=== PATIENT | male | born 1940 | race Hispanic/Latino ===

== ENCOUNTER 2017-04-28 11:23 | Inpatient (IN) | payer MEDICARE ==
[2017-04-28 11:35] VITALS: BMI 25.8
[2017-04-28] MEDS ORDERED: Lidocaine 2 Grams in D5W 2,000 MG/500 ML BAG IV PRN (11:35)
--- NOTE | 2017-04-28 11:36 | ED PDOC ---
Arrival/HPI - General Time Seen by Provider: 04/28/17 11:32 Historian: EMS - Critical Care Critical Care Minutes: 30 minutes - History of Present Illness Narrative History of Present Illness (Text): 04/28/17 11:32 A 76 year old male, whose past medical history includes PA 10 years ago with 3 cardiac stents, brought into the emergency department by EMS for chest pain radiating down his left arm. As per EMS report, patient was cardioverted 7 times in the field on route to emergency room. Patient received aspirin, 300 amiodarone, 2g magnesium and 100 lidocaine. HPI and ROS limited due to patients state. PMD: Dr. Lauren Past Medical History - Provider Review Nursing Documentation Reviewed: Yes Family/Social History - Physician Review Nursing Documentation Reviewed: Yes Family/Social History: No Known Family HX Allergies/Home Meds Allergies/Adverse Reactions: Allergies No Known Allergies Allergy (Verified 04/28/17 11:34) Review of Systems - Review of Systems Systems not reviewed;Unavailable: Acuity of Condition Physical Exam Vital Signs Reviewed: Yes Vital Signs Temp Pulse Resp BP Pulse Ox 04/28/17 20:45 65 64 H 141/84 98 04/28/17 20:40 68 29 H 99 04/28/17 20:30 64 17 134/78 97 04/28/17 20:20 64 14 100 04/28/17 20:15 63 19 135/77 97 04/28/17 20:10 64 31 H 99 04/28/17 20:00 65 18 149/81 98 04/28/17 18:30 60 137/82 99 04/28/17 18:20 62 64 H 98 04/28/17 18:15 59 L 136/81 98 04/28/17 18:10 61 59 H 99 04/28/17 18:00 61 145/83 99 04/28/17 17:50 62 69 H 100 04/28/17 17:45 62 153/89 H 99 04/28/17 17:40 63 69 H 100 04/28/17 17:31 64 44 H 149/84 100 04/28/17 17:30 65 27 H 98 04/28/17 17:20 67 18 125/75 99 04/28/17 17:15 61 16 125/75 100 04/28/17 17:10 61 16 100 04/28/17 17:07 98.4 F 75 H 142/79 04/28/17 17:00 62 25 H 133/75 100 04/28/17 16:50 63 23 100 04/28/17 16:47 74 H 04/28/17 16:45 62 16 130/73 100 04/28/17 16:40 62 17 100 04/28/17 16:37 72 H 04/28/17 16:30 63 16 123/78 100 04/28/17 16:29 63 16 129/75 100 04/28/17 16:22 70 68 H 129/75 04/28/17 16:20 63 16 100 04/28/17 16:10 61 15 100 04/28/17 16:07 66 17 142/79 04/28/17 16:05 65 14 142/79 100 04/28/17 16:00 62 18 100 04/28/17 15:52 66 132/63 04/28/17 15:50 63 23 100 04/28/17 15:43 65 24 98 04/28/17 15:37 17 142/74 04/28/17 15:22 59 L 04/28/17 12:30 80 18 111/70 100 04/28/17 11:59 61 145/82 Blood Pressure: Normal Pulse: Regular Appearance: Positive for: Well-Appearing, Non-Toxic, Comfortable Pain Distress: None Mental Status: Positive for: Alert and Oriented X 3 - Systems Exam Head: Present: Atraumatic, Normocephalic Pupils: Present: PERRL Extroacular Muscles: Present: EOMI Conjunctiva: Present: Normal Mouth: Present: Moist Mucous Membranes Neck: Present: Normal Range of Motion Respiratory/Chest: Present: Clear to Auscultation, Good Air Exchange. No: Respiratory Distress, Accessory Muscle Use Cardiovascular: Present: Regular Rate and Rhythm, Normal S1, S2. No: Murmurs Abdomen: Present: Normal Bowel Sounds. No: Tenderness, Distention, Peritoneal Signs Back: Present: Normal Inspection Upper Extremity: Present: Normal Inspection. No: Cyanosis, Edema Lower Extremity: Present: Normal Inspection. No: Edema Neurological: Present: GCS=15, CN II-XII Intact, Speech Normal Skin: Present: Warm, Dry, Normal Color. No: Rashes Psychiatric: Present: Alert, Oriented x 3, Normal Insight, Normal Concentration Medical Decision Making ED Course and Treatment: 04/28/17 11:32 Impression: A 76 year old male brought in for chest pain radiating down left arm Plan: -- Chest xray -- EKG -- Labs -- Lidocaine, Nitroglycerin and IV fluids -- Reassess and disposition Progress Notes: EKG shows NSR at 62 BPM with RBBB, normal rate, normal axis, normal interval. Interpreted by me. Weaving Supervisor paged. Awaiting call back. Report Date : 04/28/2017 12:22:50 Procedure: Chest xray Dictator : Carmen Erazo MD IMPRESSION: No active pulmonary disease. 04/28/17 12:38 Weaving Supervisor is in the middle of a procedure. States he will contact the emergency room after he is done. 04/28/17 2:[address]visor [address] Velazquez, states he will evaluate patient at bedside. 04/28/17 13:02 Dr. Velazquez at bedside, states he will take patient to the syrup machine laborer. Requests to administer Plavix. Plan is to admit to the ICU. Case discussed with Dr. Ceballos, who accepts admission to his service. - Critical Care Critical Care Minutes: 30 minutes - Lab Interpretations Lab Results: 04/28/17 11:25 04/28/17 11:25 Lab Results 04/28/17 12:13: pO2 135 H, VBG pH 7.28 L, VBG pCO2 45.0, VBG HCO3 21.1, VBG Total CO2 22.5, VBG O2 Sat (Calc) 99.5 H, VBG Base Excess -5.6 L, VBG Potassium 3.6, Glucose 177 H, Lactate 2.9 H, FiO2 21.0, Sodium 137.0, Chloride 106.0, Venous Blood Potassium 3.6 04/28/17 11:25: Sodium 141, Potassium 3.2 L, Chloride 102, Carbon Dioxide 21, Anion Gap 21 H, BUN 18, Creatinine 1.3, Est GFR ( Amer) > 60, Est GFR ( Non-Af Amer) 54, Random Glucose 178 H, Calcium 9.7, Phosphorus 3.7, Magnesium 3.9 H, Total Bilirubin 1.2, AST 30, ALT 32, Alkaline Phosphatase 77, Lactate Dehydrogenase 549, Total Creatine Kinase 199, Troponin I 0.04, Total Protein 7.1 , Albumin 4.2, Globulin 2.9, Albumin/Globulin Ratio 1.4 04/28/17 11:25: PT 11.9, INR 1.03 04/28/17 11:25: WBC 13.3 H, RBC 5.26, Hgb 16.1, Hct 47.1, MCV 89.5, MCH 30.6, MCHC 34.2, RDW 13.3, Plt Count 191, MPV 11.0, Gran % 76.3 H, Lymph % (Auto) 16.7 L, Coleman % (Auto) 6.8 H, Eos % (Auto) 0.0 L, Baso % (Auto) 0.2, Gran # 10.11 H, Lymph # (Auto) 2.2, Coleman # (Auto) 0.9 H, Eos # (Auto) 0.0, Baso # (Auto ) 0.03 - RAD Interpretation Radiology Orders: 04/28/17 11:35 CHEST PORTABLE [RAD] Stat - Medication Orders Current Medication Orders: Discontinued Medications Acetaminophen (Tylenol 325mg Tab) 650 mg PO STAT STA Stop: 04/28/17 20:26 Last Admin: 04/28/17 20:40 Dose: 650 mg MAR Pain/Vitals Document 04/28/17 20:40 SGG (Rec: 04/28/17 20:40 SG [facility]) Pain Reassessment Is This A Pain ReAssessment? No Sleep Is patient sleeping during reassessment? No Presence of Pain Presence of Pain Yes Aspirin (Ecotrin) 81 mg PO DAILY [facility] Last Admin: 05/02/17 09:45 Dose: 81 mg Atorvastatin Calcium (Lipitor) 40 mg PO DIN [facility] Last Admin: 05/01/17 17:43 Dose: 40 mg Clopidogrel Bisulfate (Plavix) 600 mg PO STAT STA Stop: 04/28/17 13:11 Last Admin: 04/28/17 13:14 Dose: 600 mg Clopidogrel Bisulfate (Plavix) 75 mg PO DAILY [facility] Last Admin: 05/02/17 09:45 Dose: 75 mg Diltiazem HCl (Cardizem) 10 mg IVP ONCE ONE Stop: 04/29/17 23:37 Last Admin: 04/30/17 00:09 Dose: 10 mg IVP Administration Document 04/30/17 00:09 MELLO (Rec: 04/30/17 00:09 MELLO [id number]) Charges for Administration # of IVP Administrations 1 MAR Pulse and Blood Pressure Document 04/30/17 00:09 BK (Rec: 04/30/17 00:09 BK [id number]) Pulse Pulse Rate (60-90) 131 Blood Pressure Blood Pressure (100/60-150/90) 113/69 Diltiazem HCl (Cardizem) 10 mg IVP ONCE ONE Stop: 04/30/17 03:31 Last Admin: 04/30/17 03:43 Dose: 10 mg IVP Administration Document 04/30/17 03:43 BK (Rec: 04/30/17 03:44 BK [place] [id number]) Charges for Administration # of IVP Administrations 1 MAR Pulse and Blood Pressure Document 04/30/17 03:43 BK (Rec: 04/30/17 03:44 BK [place] [id number]) Pulse Pulse Rate (60-90) 125 Blood Pressure Blood Pressure (100/60-150/90) 118/78 Diltiazem HCl (Cardizem) 30 mg PO TID [facility] Last Admin: 05/02/17 09:44 Dose: 30 mg MAR Pulse and Blood Pressure Document 05/02/17 09:44 CARINA (Rec: 05/02/17 09:44 CARINA [place] [id number]) Pulse Pulse Rate (60-90) 72 Blood Pressure Blood Pressure (100/60-150/90) 136/72 Diltiazem HCl (Cardizem) 30 mg PO TID [facility] Docusate Sodium (Colace) 100 mg PO BID [facility] Last Admin: 05/02/17 09:44 Dose: 100 mg Last Bowel Movement Document 05/02/17 09:44 CARINA (Rec: 05/02/17 09:45 CARINA [place] [id number]) Last Bowel Movement Last Bowel Movement 05/01/17 Heparin Sodium (Porcine) (Heparin) 3,000 units IVP STAT STA PRN Reason: Protocol Stop: 04/29/17 23:38 Last Admin: 04/30/17 00:10 Dose: 3,000 units IVP Administration Document 04/30/17 00:10 BK (Rec: 04/30/17 00:10 MELLO [id number]) Charges for Administration # of IVP Administrations 1 Lidocaine HCl/Dextrose (Lidocaine 2 Grams In D5w) 2,000 mg in 500 mls @ 30 mls/ hr IV .T37N29H PRN; Protocol; 2 MG/MIN PRN Reason: TITRATE PER MD ORDER Stop: 04/28/17 20:00 Last Admin: 04/28/17 11:41 Dose: 30 mls/hr eMAR Start Stop Document 04/28/17 11:41 [facility] (Rec: 04/28/17 11:41 [facility] [id number]) Intravenous Solution Start Date 04/28/17 Start Time 11:41 Nitroglycerin/Dextrose (Nitroglycerin 50 Mg/250 Ml D5w) 50 mg in 250 mls @ 1.5 mls/hr IV .Q24H PRN; Protocol; 5 MCG/MIN PRN Reason: chest pain Last Admin: 04/28/17 11:59 Dose: 1.5 mls/hr eMAR Start Stop Document 04/28/17 11:59 [facility] (Rec: 04/28/17 12:05 [facility] [id number]) Intravenous Solution Start Date 04/28/17 Start Time 11:59 MAR Pulse and Blood Pressure Document 04/28/17 11:59 [facility] (Rec: 04/28/17 12:05 [facility] [id number]) Pulse Pulse Rate (60-90) 61 Blood Pressure Blood Pressure (100/60-150/90) 145/82 Sodium Chloride (Sodium Chloride 0.9%) 500 mls @ 999 mls/hr IV .Q31M STA Stop: 04/28/17 12:12 Last Admin: 04/28/17 11:53 Dose: 999 mls/hr eMAR Start Stop Document 04/28/17 11:53 [facility]MC (Rec: 04/28/17 11:54 [facility] [id number]) Intravenous Solution Start Date 04/28/17 Start Time 11:53 End Date 04/28/17 End time 12:25 Total Infusion Time 32 Sodium Chloride (Sodium Chloride 0.9%) 1,000 mls @ 50 mls/hr IV .Q20H FABIANO Stop: 04/28/17 20:00 Last Admin: 04/28/17 16:00 Dose: 50 mls/hr eMAR Start Stop Document 04/28/17 16:00 GLI (Rec: 04/28/17 17:21 GLI ADMIN-PC) Intravenous Solution Start Date 04/28/17 Start Time 16:00 End Date 04/28/17 Eptifibatide (Integrilin) 75 mg in 100 mls @ 11.975 mls/hr IV .Q8H22M FABIANO; 2 MCG/KG/MIN PRN Reason: Protocol Stop: 04/29/17 09:00 Last Admin: 04/30/17 19:22 Dose: Sodium Phosphate 15 mmole/ (Sodium Chloride) 255 mls @ 42.5 mls/hr IVPB ONCE ONE Stop: 04/29/17 14:16 Last Admin: 04/29/17 16:39 Dose: 42.5 mls/hr eMAR Start Stop Document 04/29/17 16:39 EMILI (Rec: 04/29/17 16:40 EMILI [facility]) Intravenous Solution Start Date 04/29/17 Start Time 10:30 End Date 04/29/17 End time 16:00 Total Infusion Time 330 diltiaZEM IVPB 100mg in NS (Cardizem 100mg In Ns) 100 mls @ 10 mls/hr IV .Q10H PRN; Protocol; 10 MG/HR PRN Reason: TITRATE PER MD ORDER Last Admin: 04/30/17 07:56 Dose: 10 mg/hr, 10 mls/hr eMAR Start Stop Document 04/30/17 07:56 CD (Rec: 04/30/17 07:57 CD [id number]) Intravenous Solution Start Date 04/30/17 Start Time 07:57 MAR Pulse Rate Document 04/30/17 07:56 CD (Rec: 04/30/17 07:57 CD [id number]) Pulse Rate Pulse Rate (60-90) 79 Titration Intervention Document 04/30/17 07:56 CD (Rec: 04/30/17 07:57 CD [id number]) Titration Intake Cumulative Intake (Rx) 100 Waste Amount 0 Container Volume 100 Titration Dosing Titration Dose 10 IV Rate 10 Intake/Decrease Started/Running Cumulative Dose 100 Heparin Sodium/Sodium Chloride (Heparin 86482 Units/250ml 1/2 Normal Saline) 25 ,000 units in 250 mls @ 13.472 mls/hr IV .[id number] PRN; Protocol; 18 UNITS/KG/HR PRN Reason: ADJUST RATE PER PROTOCOL Last Admin: 04/30/17 00:11 Dose: 18 units/kg/hr, 13.472 mls/hr eMAR Start Stop Document 04/30/17 00:11 BK (Rec: 04/30/17 00:12 BK [id number]) Intravenous Solution Start Date 04/30/17 Start Time 00:12 Titration Intervention Document 04/30/17 00:11 BK (Rec: 04/30/17 00:12 BK [id number]) Titration Intake Waste Amount 0 Container Volume 250 Titration Dosing Titration Dose 18 IV Rate 13.472 Intake/Decrease Started Potassium Phosphate 15 mmole/ (Sodium Chloride) 255 mls @ 42.5 mls/hr IVPB ONCE ONE Stop: 05/01/17 00:14 Last Admin: 04/30/17 21:26 Dose: 42.5 mls/hr eMAR Start Stop Document 04/30/17 21:26 SGG (Rec: 04/30/17 21:27 SGG [id number]) Intravenous Solution Start Date 04/30/17 Start Time 21:27 Potassium Phosphate 15 mmole/ (Sodium Chloride) 255 mls @ 42.5 mls/hr IVPB ONCE ONE Stop: 05/01/17 19:29 Last Admin: 05/01/17 13:56 Dose: 42.5 mls/hr eMAR Start Stop Document 05/01/17 13:56 CD (Rec: 05/01/17 13:56 CD [id number]) Intravenous Solution Start Date 05/01/17 Start Time 13:56 Lisinopril (Zestril) 2.5 mg PO DAILY [facility] Last Admin: 05/02/17 09:45 Dose: 2.5 mg MAR Pulse and Blood Pressure Document 05/02/17 09:45 CARINA (Rec: 05/02/17 09:46 CARINA [id number]) Pulse Pulse Rate (60-90) 72 Blood Pressure Blood Pressure (100/60-150/90) 136/72 Metoprolol Tartrate (Lopressor) 25 mg PO BID [facility] Last Admin: 05/02/17 09:45 Dose: 25 mg MAR Pulse and Blood Pressure Document 05/02/17 09:45 CARINA (Rec: 05/02/17 09:45 CARINA [id number]) Pulse Pulse Rate (60-90) 72 Blood Pressure Blood Pressure (100/60-150/90) 136/72 Ondansetron HCl (Zofran Inj) 4 mg IV ONCE PRN PRN Reason: Nausea/Vomiting Pantoprazole Sodium (Protonix Ec Tab) 40 mg PO DAILY [facility] Last Admin: 05/02/17 09:45 Dose: 40 mg Pneumococcal Polyvalent Vaccine (Pneumovax 23 Vaccine) 0.5 ml IM .ONCE ONE Stop: 04/28/17 20:55 Potassium Chloride (Klor-Con 10) 30 meq PO STAT STA Stop: 04/28/17 12:23 Last Admin: 04/28/17 13:14 Dose: 30 meq Potassium Chloride (K-Dur 20 Meq Er Tab) 40 meq PO STAT STA Stop: 04/28/17 15:32 Last Admin: 04/28/17 17:19 Dose: 40 meq Zolpidem Tartrate (Ambien) 5 mg PO HS PRN PRN Reason: Insomnia - PA / TRADE MARK EXAMINER / Resident Statement MD/DO has reviewed & agrees with the documentation as recorded. - Scribe Statement The provider has reviewed the documentation as recorded by the Tory Larry Provider Scribe Attestation: All medical record entries made by the Piperibanand were at my direction and personally dictated by me. I have reviewed the chart and agree that the record accurately reflects my personal performance of the history, physical exam, medical decision making, and the department course for this patient. I have also personally directed, reviewed, and agree with the discharge instructions and disposition Disposition/Present on Arrival - Present on Arrival Any Indicators Present on Arrival: No History of DVT/PE: No History of Uncontrolled Diabetes: No Urinary Catheter: No History of Decub. Ulcer: No History Surgical Site Infection Following: None - Disposition Have Diagnosis and Disposition been Completed?: No Diagnosis: Acute coronary syndrome, Ventricular tachycardia Disposition: HOSPITALIZED Disposition Time: 13:02 Patient Plan: Admission, ICU Condition: FAIR
[2017-04-28] MEDS ORDERED: Lidocaine 2 Grams in D5W 2,000 MG/500 ML BAG IV ONE (11:37)
[2017-04-28] MEDS ORDERED: Sodium Chloride 0.9% 500 ML IV STA (11:42)
[2017-04-28] MEDS ORDERED: Nitroglycerin 50mg in D5W 50 MG/250 ML BOTTLE IV PRN (11:42)
[2017-04-28 11:48] LABS: BASO # 0.03 K/mm3 (0.0-2.0); BASO % 0.2 % (0.0-3.0); GRAN # 10.11 (1.4-6.5); GRAN % 76.3 % (50.0-68.0); HEMOGLOBIN 16.1 g/dL (14.0-18.0); LYMPH # 2.2 (1.2-3.4); LYMPH % 16.7 % (22.0-35.0); MEAN CELL VOLUME 89.5 fl (80.0-105.0); MEAN CORPUSCULAR HEMOGLOBIN 30.6 pg (25.0-35.0); MEAN CORPUSCULAR HGB CONC 34.2 g/dl (31.0-37.0); MONO # 0.9 (0.1-0.6); MONO % 6.8 % (1.0-6.0); RBC 5.26 10^6/uL (3.5-6.1); RED CELL DISTRIBUTION WIDTH 13.3 % (11.5-14.5); WHITE BLOOD COUNT 13.3 10^3/ul (4.5-11.0)
[2017-04-28 11:56] LABS: INR 1.03 (0.93-1.08); PROTHROMBIN TIME 11.9 SECONDS (9.4-12.5)
[2017-04-28 11:58] LABS: ALB/GLOB RATIO 1.4 (1.1-1.8); ALBUMIN 4.2 g/dL (3.0-4.8); ALT/SGPT 32 U/L (7-56); AST/SGOT 30 U/L (17-59); BLOOD UREA NITROGEN 18 mg/dL (7-21); CALCIUM 9.7 mg/dL (8.4-10.5); GFR AFRICAN-AMERICAN > 60; GFR NON-AFRICAN AMERICAN 54; MAGNESIUM 3.9 mg/dL (1.7-2.2)
[2017-04-28 12:08] LABS: TROPONIN I 0.04 ng/mL
[2017-04-28] MEDS ORDERED: Potassium Chloride 10 mEq ER Tab PO STA (12:22)
--- NOTE | 2017-04-28 12:24 | RAD ---
HISTORY: chest pain and vtach COMPARISON: No prior. FINDINGS: LUNGS: The lungs are well inflated and clear. PLEURA: No significant pleural effusion identified, no pneumothorax apparent. CARDIOVASCULAR: Normal. OSSEOUS STRUCTURES: No significant abnormalities. VISUALIZED UPPER ABDOMEN: Normal. OTHER FINDINGS: None. IMPRESSION: No active pulmonary disease.
[2017-04-28 12:31] LABS: VENOUS BLOOD GAS BASE EXCESS -5.6 mmol/L (0.0-2.0); VENOUS BLOOD GAS PO2 135 mm/Hg (30-55); VENOUS BLOOD PH 7.28 (7.32-7.43)
[2017-04-28] MEDS ORDERED: Lidocaine 2% Inj (20ml) ONE (13:19)
[2017-04-28] MEDS ORDERED: Phenylephrine 10 mg/ml Inj ONE (13:20)
[2017-04-28] MEDS ORDERED: Midazolam 2 MG/2 ML VIAL ONE (13:20)
[2017-04-28] MEDS ORDERED: Iodixanol 320 MG/ML 200 ML BOTTLE IV ONE (13:21)
[2017-04-28] MEDS ORDERED: HEPARIN SODIUM/NS 2,000 ML IV ONE (13:21)
[2017-04-28] MEDS ORDERED: Iohexol 350mgl/ml 50 ML ONE (13:21)
[2017-04-28] MEDS ORDERED: Iodixanol 320 MG/ML 100 ML BOTTLE IV ONE (13:21)
[2017-04-28] MEDS ORDERED: Amiodarone 150 mg/D5W 100 ml 0 MG/0 ML BAG ONE (14:07)
[2017-04-28] MEDS ORDERED: Eptifibatide 0.75 mg/ml 75 MG/100 ML BOTTLE IV ONE (14:29)
[2017-04-28] MEDS ORDERED: Eptifibatide 20 mg/10mL Inj IVP ONE ×2 (14:29→14:30)
[2017-04-28] MEDS: Eptifibatide 0.75 mg/ml 75 MG/100 ML BOTTLE IV SCH ×2 (14:46→21:39)
[2017-04-28] MEDS ORDERED: HEPARIN SODIUM/NS 1,000 ML IV ONE (14:54)
[2017-04-28] MEDS ORDERED: Sodium Chloride 0.9% 1,000 ML IV SCH (15:30)
[2017-04-28] MEDS ORDERED: Potassium Chloride 20 mEq ER Tab PO STA (15:31)
--- NOTE | 2017-04-28 15:43 | CARD ---
APPROVED REPORT Procedure(s) performed: Left Heart Catheterization PTCA with Stenting 0f Mid RCA with YUNI HISTORY 7 days), previous diagnostic cath, tobacco history() : The patient is a former smoker , previous PCI (The PCI date was 03/14/2006), hypertension , dyslipidemia , Came to ER with Chest Pain and VT/V .Fib shocked 7 times en route to ER on [place], Hx of PTCA with three stents 10 years ago, then lost F/u.. INDICATION The indication(s) include : unstable angina , non-STEMI , arrhythmia, dyspnea. CASE TECHNIQUE The patient was brought emergently to the Cardiac Catheterization Laboratory in a fasting state and was prepped and draped in a sterile manner. The was infiltrated with 2% Lidocaine subcutaneous anesthesia. A 6 Fr x 11 cm Cristina sheath was inserted into the right femoral artery without difficulty. Coronary angiography was performed using coronary diagnostic catheters. The left coronary system was accessed and visualized with a Diagnostic ,5 Fr JL 3.5 catheter. The right coronary system was accessed and visualized with a Diagnostic , 5 Fr JR 4 catheter. The left ventricle was accessed and visualized with a 5 Fr Pigtail 145 (Angled) catheter. Left ventricular/Aortic Valve gradient assessed on pullback. Closure device was deployed with a 6 Fr Angio-Seal without any complications. Vessel Analysis The patient's coronary anatomy is co-dominant. The left main coronary artery is a large size vessel with diffuse calcification noted throughout this vessel and without significant stenosis. There is a 20% stenosis in the distal segment. The left main trifurcates to the left anterior descending, circumflex, and ramus. The left anterior descending artery is a medium size vessel with diffuse calcification noted throughout this vessel and without significant stenosis. patent stents in Proximal and mid LAD The first diagonal branch is a medium size vessel with diffuse calcification noted throughout this vessel and without significant stenosis. The circumflex artery is a large size vessel with diffuse calcification noted throughout this vessel and without significant stenosis. The first obtuse marginal branch is a small size vessel with diffuse calcification noted throughout this vessel and without significant stenosis. The second obtuse marginal branch is a small size vessel with diffuse calcification noted throughout this vessel and without significant stenosis. The left posterior descending artery is a large size vessel with diffuse calcification noted throughout this vessel and without significant stenosis. The ramus intermedius artery is a medium size vessel with diffuse calcification noted throughout this vessel and without significant stenosis. The right coronary artery is a large size vessel with diffuse calcification noted throughout this vessel and with significant stenosis. Brant's crook take off There is a 100% stenosis in the mid segment. Left Ventricle The left ventricle is mildly enlarged in size with mildly decreased contractility. Ischemic cardiomyopathy. The left ventricular ejection fraction is estimated to be 45%. The left ventricular end diastolic pressure is 10-12 mmHg. There was no gradient across the aortic valve upon pullback. PCI Technique Lesion Anticoagulation was achieved with Heparin. Percutaneous coronary intervention was performed on the mid right coronary artery. The lesion stenosis prior to intervention was 100% with GERARD 0 flow. A 6 Fr JR 4 and 6 fr guide liner Guide Catheter was used to engage the ostium. A Everywun 182 Interventional Guidewire was used to cross the lesion. BALLOON DILATION A Balloon catheter 2.0 x 10 mm Sprinter RX was inserted and inflated up to 8.00atm for 33seconds. STENT DEPLOYMENT A drug-eluting stent 3.0 x 15 mm Resolute YUNI was inserted and inflated up to 14.00atm for 10seconds. Final angiography reveals 0 % stenosis with GERARD 3 flow. 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 EF-45%, EDP-10-12 mmof Hg. Recommendations Cardiac Rehabilitation ReferralDaily ASA with Plavix for at least one year Aggressive Medical TherapyCardiac Risk Reduction Program compliance with meds. Beta valery/ URIEL/ statin DC lidocaine in 6 hours. CC; Drs. Lauren/ Whit
--- NOTE | 2017-04-28 17:27 | CP.PCM.CON ---
<Abhishek Saleem - Last Filed: 04/28/17 18:47> History of Present Illness - History of Present Illness History of Present Illness: Abhishek ParsonStiven PGY1 ICU Consult Note for Dr. Ceballos Mr. Shine is a 76yo M who is a former smoker with a PMH of [place] (2006) s/p [address] Velazquez and CAD 1 (poor stress test results) 1 year later that required [address] Sherman who presented to ED with complaints of chest heaviness. The patient states that he was on his way home when he experienced chest heaviness, but due to his cardiac history, was worried and called EMT. Chest pain also radiated to his L arm, but was not pleuritic in nature and not associated w/ shortness of breath, n/v/d, dizziness , headaches, or diaphoresis. Per ED note, the patient was "cardioverted 7 times in the field on route to emergency room. Patient received aspirin, 300 amiodarone, 2g magnesium and 100 lidocaine." EKG in ED showed NSR at 62 BPM with RBBB, normal rate, normal axis, normal interval. CXR was unremarkable. Dr. Velazquez, Cardiology, was paged and recommended to administer Plavix. Patient was taken to labor operator and underwent Left heart catheterization w/ stenting of mid RCA w/ 1 YUNI due to 100% occlusion. When seen by ICU team, patient is resting comfortably and states that his chest discomfort has resolved. He denies shortness of breath, fevers, n/v/d, cough or any dizziness. 12-pt ROS was reviewed and is otherwise negative. PMH: as above PSH: none Meds: as Per MAR NKDA SHx: former smoker, , lives in senior home, denies ETOH or substance abuse PMD: Dr. Lauren Review of Systems - Review of Systems All systems: reviewed and no additional remarkable complaints except (as per HPI ) Past Patient History - Infectious Disease Hx of Infectious Diseases: None - Past Medical History & Family History Past Medical History?: Yes - Past Social History Smoking Status: Former Smoker Alcohol: None Drugs: Denies Home Situation {Lives}: Other ([facility] facility) - CARDIAC Hx Cardiac Disorders: Yes (s/p 3 stents due to CAD) Hx Heart Attack: Yes - PULMONARY Hx Respiratory Disorders: No - NEUROLOGICAL Hx Neurological Disorder: No - HEENT Hx HEENT Problems: No - RENAL Hx Chronic Kidney Disease: No - ENDOCRINE/METABOLIC Hx Endocrine Disorders: No - HEMATOLOGICAL/ONCOLOGICAL Hx Blood Disorders: No - INTEGUMENTARY Hx Dermatological Problems: No - MUSCULOSKELETAL/RHEUMATOLOGICAL Hx Musculoskeletal Disorders: No - GASTROINTESTINAL Hx Gastrointestinal Disorders: No - GENITOURINARY/GYNECOLOGICAL Hx Genitourinary Disorders: No - PSYCHIATRIC Hx Psychophysiologic Disorder: No Hx Substance Use: No - SURGICAL HISTORY Hx Surgeries: Yes Hx Cardiac Catheterization: Yes Hx Coronary Stent: Yes (x3) Meds Allergies/Adverse Reactions: Allergies Allergy/AdvReac Type Severity Reaction Status Date / Time No Known Allergies Allergy Verified 04/28/17 11:34 - Medications Medications: Current Medications Aspirin (Ecotrin) 81 mg PO DAILY [facility] Atorvastatin Calcium (Lipitor) 40 mg PO DIN [facility] Last Admin: 04/28/17 17:19 Dose: 40 mg Clopidogrel Bisulfate (Plavix) 75 mg PO DAILY [facility] Docusate Sodium (Colace) 100 mg PO BID [facility] Last Admin: 04/28/17 17:19 Dose: 100 mg Lidocaine HCl/Dextrose (Lidocaine 2 Grams In D5w) 2,000 mg in 500 mls @ 30 mls/ hr IV .[id number] PRN; Protocol; 2 MG/MIN PRN Reason: TITRATE PER MD ORDER Stop: 04/28/17 20:00 Last Admin: 04/28/17 11:41 Dose: 30 mls/hr Sodium Chloride (Sodium Chloride 0.9%) 1,000 mls @ 50 mls/hr IV .Q20H FABIANO Stop: 04/28/17 20:00 Last Admin: 04/28/17 16:00 Dose: 50 mls/hr Eptifibatide (Integrilin) 75 mg in 100 mls @ 11.975 mls/hr IV .Q8H22M FABIANO; 2 MCG/KG/MIN PRN Reason: Protocol Stop: 04/29/17 09:00 Last Admin: 04/28/17 14:46 Dose: 11.975 mls/hr Lisinopril (Zestril) 2.5 mg PO DAILY [facility] Metoprolol Tartrate (Lopressor) 25 mg PO BID [facility] Last Admin: 04/28/17 17:20 Dose: 25 mg Ondansetron HCl (Zofran Inj) 4 mg IV ONCE PRN PRN Reason: Nausea/Vomiting Zolpidem Tartrate (Ambien) 5 mg PO HS PRN PRN Reason: Insomnia Physical Exam - Constitutional Appears: Well, Non-toxic, No Acute Distress - Head Exam Head Exam: ATRAUMATIC, NORMAL INSPECTION - Eye Exam Eye Exam: EOMI, Normal appearance - ENT Exam ENT Exam: Mucous Membranes Moist - Neck Exam Neck exam: Positive for: Normal Inspection - Respiratory Exam Respiratory Exam: Clear to Auscultation Bilateral, NORMAL BREATHING PATTERN. absent: Rales, Rhonchi, Wheezes, Respiratory Distress - Cardiovascular Exam Cardiovascular Exam: RRR, +S1, +S2 - GI/Abdominal Exam GI & Abdominal Exam: Normal Bowel Sounds, Soft. absent: Distended, Tenderness - Exam Additional comments: no fonseca - Extremities Exam Extremities exam: Positive for: normal inspection. Negative for: pedal edema Additional comments: R femoral artery compression dressing applied dressing c/d/i no bleeding noted - Back Exam Back exam: NORMAL INSPECTION - Neurological Exam Neurological exam: Alert, Oriented x3 - Psychiatric Exam Psychiatric exam: Normal Affect, Normal Mood - Skin Skin Exam: Normal Color, Warm Results - Vital Signs Recent Vital Signs: Last Vital Signs Temp Pulse 75 04/28/17 17:20 Resp 74 H 04/28/17 16:47 BP 125/75 04/28/17 17:20 Pulse Ox 100 04/28/17 16:30 - Labs Result Diagrams: 04/28/17 11:25 04/28/17 11:25 Assessment & Plan - Assessment and Plan (Free Text) Assessment: 76yo M with a PMH of CAD s/p 3 stents and former tobacco use who presented with chest pain x1 day. Troponin was indeterminate and EKG showed RBBB but no ST elevations or T-wave changes. Patient was taken to labor operator and underwent PTCA w / stenting of mid RCA w/ YUNI for 100% occlusion. Patient is medically stable. Plan: 1. CAD s/p LHC and PTCA w/ YUNI - Cardiology following and recommend: daily ASA and Plavix for >1 year medical therapy cardiac risk reduction program strict medical compliance with meds cont BB, ACEi, and statin d/c lidocaine at 8pm tonight - patient to be on integrilin drip until tomorrow, afterward he can be d/c from ICU - cont Zofran PRN - cont colace - follow rest of cardio recs - follow up labs ordered by cardio - echo ordered - D for dinner tonight 2. Leukocytosis - likely reactive - cont to monitor for signs of infection 3. Hypokalemia - repleted in ED - trend labs Patient was seen, examined and discussed with attending, Dr. Tucker Saleem PGY1 Pager # [phone] <Diaz Ceballos - Last Filed: 04/29/17 12:38> Meds - Medications Medications: Current Medications Aspirin (Ecotrin) 81 mg PO DAILY [facility] Last Admin: 04/29/17 11:45 Dose: 81 mg Atorvastatin Calcium (Lipitor) 40 mg PO DIN [facility] Last Admin: 04/28/17 17:19 Dose: 40 mg Clopidogrel Bisulfate (Plavix) 75 mg PO DAILY [facility] Last Admin: 04/29/17 11:47 Dose: 75 mg Docusate Sodium (Colace) 100 mg PO BID [facility] Last Admin: 04/29/17 11:44 Dose: 100 mg Sodium Phosphate 15 mmole/ (Sodium Chloride) 255 mls @ 42.5 mls/hr IVPB ONCE ONE Stop: 04/29/17 14:16 Lisinopril (Zestril) 2.5 mg PO DAILY [facility] Last Admin: 04/29/17 11:48 Dose: 2.5 mg Metoprolol Tartrate (Lopressor) 25 mg PO BID [facility] Last Admin: 04/29/17 11:46 Dose: 25 mg Ondansetron HCl (Zofran Inj) 4 mg IV ONCE PRN PRN Reason: Nausea/Vomiting Zolpidem Tartrate (Ambien) 5 mg PO HS PRN PRN Reason: Insomnia Results - Vital Signs Recent Vital Signs: Last Vital Signs Temp 97.9 F 04/29/17 06:00 Pulse 68 04/29/17 11:48 Resp 24 04/29/17 07:00 BP 99/40 L 04/29/17 11:48 Pulse Ox 96 04/29/17 07:00 - Labs Result Diagrams: 04/29/17 05:30 04/29/17 05:30 Labs: Laboratory Results - last 24 hr 04/28/17 04/28/17 04/28/17 18:45 18:45 18:45 WBC 12.6 H RBC 5.06 Hgb 15.1 Hct 45.2 MCV 89.3 MCH 29.8 MCHC 33.4 RDW 13.4 Plt Count 184 MPV 10.3 Gran % 83.4 H Lymph % (Auto) 6.7 L [place] % (Auto) 9.8 H Eos % (Auto) 0.0 L Baso % (Auto) 0.1 Gran # 10.53 H Lymph # (Auto) 0.8 L [place] # (Auto) 1.2 H Eos # (Auto) 0.0 Baso # (Auto) 0.01 pO2 33 VBG pH 7.35 VBG pCO2 46.0 VBG HCO3 25.4 VBG Total CO2 26.8 VBG O2 Sat (Calc) 70.5 H VBG Base Excess -0.6 L VBG Potassium 4.7 Sodium 139 137.0 Chloride 103 105.0 Glucose 162 H Lactate 1.5 FiO2 21.0 Potassium 4.5 Carbon Dioxide 25 Anion Gap 15 BUN 15 Creatinine 1.0 Est GFR ( Amer) > 60 Est GFR (Non-Af Amer) > 60 Random Glucose 155 H Hemoglobin A1c Calcium 8.4 Phosphorus Magnesium 2.4 H Total Bilirubin AST ALT Alkaline Phosphatase Lactate Dehydrogenase 1986 H Total Creatine Kinase 4786 H CK-MB (CK-2) 338.0 H CK-MB (CK-2) % 7.1 H Troponin I 204.00 H* D Total Protein Albumin Globulin Albumin/Globulin Ratio Triglycerides Cholesterol LDL Cholesterol Direct HDL Cholesterol TSH 3rd Generation Venous Blood Potassium 4.7 04/29/17 04/29/17 04/29/17 05:30 05:30 05:30 WBC 14.1 H RBC 4.74 Hgb 14.0 Hct 42.5 MCV 89.7 MCH 29.5 MCHC 32.9 RDW 13.5 Plt Count 196 MPV 11.0 Gran % 79.1 H Lymph % (Auto) 11.2 L [place] % (Auto) 9.5 H Eos % (Auto) 0.1 L Baso % (Auto) 0.1 Gran # 11.15 H Lymph # (Auto) 1.6 Cam[place] # (Auto) 1.3 H Eos # (Auto) 0.0 Baso # (Auto) 0.01 pO2 VBG pH VBG pCO2 VBG HCO3 VBG Total CO2 VBG O2 Sat (Calc) VBG Base Excess VBG Potassium Sodium 140 Chloride 106 Glucose Lactate FiO2 Potassium 4.7 Carbon Dioxide 26 Anion Gap 13 BUN 30 H Creatinine 1.2 Est GFR ( Amer) > 60 Est GFR (Non-Af Amer) 59 Random Glucose 110 Hemoglobin A1c 5.0 Calcium 8.8 Phosphorus 1.4 L* Magnesium 2.4 H Total Bilirubin 1.1 AST 344 H D ALT 55 Alkaline Phosphatase 52 Lactate Dehydrogenase 2261 H Total Creatine Kinase 2907 H CK-MB (CK-2) 169.0 H CK-MB (CK-2) % 5.8 H Troponin I 102.00 H* D Total Protein 6.0 Albumin 3.3 Globulin 2.7 Albumin/Globulin Ratio 1.2 Triglycerides 76 Cholesterol 93 L LDL Cholesterol Direct 41 HDL Cholesterol 42 TSH 3rd Generation Venous Blood Potassium 04/29/17 05:30 WBC RBC Hgb Hct MCV MCH MCHC RDW Plt Count MPV Gran % Lymph % (Auto) Camden % (Auto) Eos % (Auto) Baso % (Auto) Gran # Lymph # (Auto) Cam[place] # (Auto) Eos # (Auto) Baso # (Auto) pO2 VBG pH VBG pCO2 VBG HCO3 VBG Total CO2 VBG O2 Sat (Calc) VBG Base Excess VBG Potassium Sodium Chloride Glucose Lactate FiO2 Potassium Carbon Dioxide Anion Gap BUN Creatinine Est GFR ( Amer) Est GFR (Non-Af Amer) Random Glucose Hemoglobin A1c Calcium Phosphorus Magnesium Total Bilirubin AST ALT Alkaline Phosphatase Lactate Dehydrogenase Total Creatine Kinase CK-MB (CK-2) CK-MB (CK-2) % Troponin I Total Protein Albumin Globulin Albumin/Globulin Ratio Triglycerides Cholesterol LDL Cholesterol Direct HDL Cholesterol TSH 3rd Generation 0.57 Venous Blood Potassium Attending/Attestation - Attestation I have personally seen and examined this patient.: Yes I have fully participated in the care of the patient.: Yes I have reviewed all pertinent clinical information: Yes Notes (Text): 04/29/17 12:33 76 yo male with Vtach due to ACS, s/p PCI with YUNI into RCA, with resolution of chest pain and episodes of Vtach. On integrillin, DAP, statins bb-ers. GI prophylaxis.
[2017-04-28 18:59] LABS: BASO # 0.01 K/mm3 (0.0-2.0); BASO % 0.1 % (0.0-3.0); GRAN # 10.53 (1.4-6.5); GRAN % 83.4 % (50.0-68.0); HEMOGLOBIN 15.1 g/dL (14.0-18.0); LYMPH # 0.8 (1.2-3.4); LYMPH % 6.7 % (22.0-35.0); MEAN CELL VOLUME 89.3 fl (80.0-105.0); MEAN CORPUSCULAR HEMOGLOBIN 29.8 pg (25.0-35.0); MEAN CORPUSCULAR HGB CONC 33.4 g/dl (31.0-37.0); MEAN PLATELET VOLUME 10.3 fl (7.0-11.0); MONO # 1.2 (0.1-0.6); MONO % 9.8 % (1.0-6.0); RBC 5.06 10^6/uL (3.5-6.1); RED CELL DISTRIBUTION WIDTH 13.4 % (11.5-14.5); WHITE BLOOD COUNT 12.6 10^3/ul (4.5-11.0)
[2017-04-28 19:01] LABS: VENOUS BLOOD GAS BASE EXCESS -0.6 mmol/L (0.0-2.0); VENOUS BLOOD GAS PO2 33 mm/Hg (30-55); VENOUS BLOOD PH 7.35 (7.32-7.43)
[2017-04-28 19:33] LABS: BLOOD UREA NITROGEN 15 mg/dL (7-21); CALCIUM 8.4 mg/dL (8.4-10.5); GFR AFRICAN-AMERICAN > 60; GFR NON-AFRICAN AMERICAN > 60; MAGNESIUM 2.4 mg/dL (1.7-2.2)
[2017-04-28 19:36] LABS: CK MB% 7.1 % (2.5-3.0)
[2017-04-28] MEDS ORDERED: Influenza Vaccine 60 mcg/0.5 mL SYR (4YR UP) IM ONE (20:54)
[2017-04-28] MEDS ORDERED: Pneumococcal 23-Valent Vaccine IM ONE (20:54)
[2017-04-29] MEDS: Eptifibatide 0.75 mg/ml 75 MG/100 ML BOTTLE IV SCH ×2 (00:27→05:54)
--- NOTE | 2017-04-29 01:09 | CON ---
DATE: REASON FOR CONSULTATION: VT, chest pain, multiple times shocked, came to the emergency room. Now patient is chest pain free. BRIEF CLINICAL HISTORY: This is a 76-year-old male with past medical history significant for myocardial infarction, CAD, status post MT 10 years ago, status post 3 stents [facility], who came to the emergency room after patient was going for ultrasound and came back home and felt sick, and developed chest pain; so family called the ambulance 911. Patient had v-fib arrest, cardioverted 7 times en route to [facility]. Now patient is on lidocaine. Feels a little chest pain, but not as bad as before. PAST MEDICAL HISTORY: Significant for coronary artery disease, status post 3 stents at [facility] by me. SOCIAL HISTORY: Denies any history of alcohol abuse. CURRENT MEDICATIONS: Patient is not sure what medications he is taking before. REVIEW OF SYSTEMS: As per HPI. PHYSICAL EXAMINATION VITAL SIGNS: Temperature afebrile, heart rate 80. Height of the patient is 5 feet 7 inches, weight of the patient 165 pounds, body mass index 25.8 kg/m2. Blood pressure 110/70. HEENT: PERRLA, extraocular muscles intact. NECK: Supple. No carotid bruits or thyromegaly. CHEST: Clear to auscultation. HEART: S1 and S2 regular. ABDOMEN: Soft. EXTREMITIES: Clubbing and cyanosis negative. LABORATORY DATA: Blood workup as follows. WBC is elevated 13.3, hemoglobin , hematocrit 47.1. Platelet count 191. Chemistry showed sodium 141, potassium 3.2, chloride 102, carbon dioxide 21, anion gap of 21. BUN 18, creatinine 1.3. EKG shows right bundle-branch block, ST-T wave changes. IMPRESSION: Possible acute ischemia, ventricular tachycardia, ventricular fibrillation, status post , history of coronary artery disease, history of stent 10 years ago, history of myocardial infarction 10 years ago, diabetes, hypertension, hyperlipidemia, noncompliance with the medications. RECOMMENDATIONS: We will load with 600 Plavix. Risks, benefits and alternatives were discussed with the patient and patient's son. Continue lidocaine. We will take him to the rd lab technician. Further recommendation after cardiac catheterization. We will follow with you. We will supplement potassium. Thank you Dr. Lauren for providing us the opportunity in taking care of the patient, Gage Shine. Ly Velazquez MD cc: Molly Lauren MD
[2017-04-29 06:54] LABS: BASO # 0.01 K/mm3 (0.0-2.0); BASO % 0.1 % (0.0-3.0); EOS % 0.1 % (1.5-5.0); GRAN # 11.15 (1.4-6.5); GRAN % 79.1 % (50.0-68.0); LYMPH # 1.6 (1.2-3.4); LYMPH % 11.2 % (22.0-35.0); MEAN CELL VOLUME 89.7 fl (80.0-105.0); MEAN CORPUSCULAR HEMOGLOBIN 29.5 pg (25.0-35.0); MEAN CORPUSCULAR HGB CONC 32.9 g/dl (31.0-37.0); MONO # 1.3 (0.1-0.6); MONO % 9.5 % (1.0-6.0); RBC 4.74 10^6/uL (3.5-6.1); RED CELL DISTRIBUTION WIDTH 13.5 % (11.5-14.5); WHITE BLOOD COUNT 14.1 10^3/ul (4.5-11.0)
[2017-04-29 07:16] LABS: LDL CHOLESTEROL 41 mg/dL (0-129)
[2017-04-29 07:39] LABS: ALB/GLOB RATIO 1.2 (1.1-1.8); ALBUMIN 3.3 g/dL (3.0-4.8); ALT/SGPT 55 U/L (7-56); AST/SGOT 344 U/L (17-59); BLOOD UREA NITROGEN 30 mg/dL (7-21); CALCIUM 8.8 mg/dL (8.4-10.5); GFR AFRICAN-AMERICAN > 60; GFR NON-AFRICAN AMERICAN 59; HDL CHOLESTEROL 42 mg/dL (29-60); MAGNESIUM 2.4 mg/dL (1.7-2.2)
[2017-04-29] MEDS ORDERED: Sodium Phosphate 15 MMOLE in Sodium Chloride 0.9% 250 ML IVPB ONE (08:17)
[2017-04-29 08:40] LABS: CK MB% 5.8 % (2.5-3.0)
--- NOTE | 2017-04-29 09:53 | CARD ---
APPROVED REPORT EKG Measurement Heart [id number] [place] 190P60 [id number] <Conclusion> Normal sinus rhythm Right bundle branch block LAHB Anteroseptal infarct, age undetermined STTW changes c/w ischemia
--- NOTE | 2017-04-29 10:06 | CARD ---
APPROVED REPORT EKG Measurement Heart [id number] IA 170P57 [id number] <Conclusion> Normal sinus rhythm Left axis deviation/LAHB Right bundle branch block Septal infarct, age undetermined, possible acute ST elevations V 1 - 4 now present
--- NOTE | 2017-04-29 10:21 | CARD ---
APPROVED REPORT EKG Measurement Heart [id number] [place] 148P22 [id number] <Conclusion> Normal sinus rhythm Left axis deviation/LAHB Right bundle branch block Anteroseptal infarct, evolving
--- NOTE | 2017-04-29 14:54 | PN ---
DATE: REASON FOR CONSULTATION: Followup VT, chest pain, multiple times shocked, came to the emergency room after having shocked 7 times status post PTCA of totally occluded RCA, wsf-WA-wayvico myocardial infarction possibly (acute NM inferior wall), though niy-FY-pvuxsdx elevation. SUBJECTIVE: Patient denies any chest pain, shortness of breath or any palpitation, feels a lot better. OBJECTIVE: GENERAL: Not in apparent distress. Right groin appears okay. Right distal pulse 1 to 2+. Rest of the examination as follows: VITAL SIGNS: Temperature afebrile, heart rate , blood pressure 134/79. HEENT: PERRLA. Extraocular muscles intact. NECK: Supple. No carotid bruits or thyromegaly. CHEST: Clear to auscultation. HEART: S1 and S2 regular. ABDOMEN: Soft. EXTREMITIES: Clubbing and cyanosis negative. LABORATORY DATA: WBC 14.9, hemoglobin 14, hematocrit 42.5, platelet count 196. Chemistry show sodium 140, potassium 4.7, chloride 106, carbon dioxide 26, anion gap of , creatinine 1.2, phosphorous 1.4, magnesium 2.4.. Total CPK 2907, troponin 102, maximum troponin 204 last night. Total CPK yesterday was 4786. IMPRESSION: Acute inferior wall myocardial infarction, qrs-WA-zpfuliw myocardial infarction, right bundle-branch block, history of coronary artery disease status post stent III, 8 to 10 years ago at [facility], admitted yesterday after having chest pain and en route to [place] having shocked 7 times ventricular tachycardia, ventricular fibrillation status post cardiac catheterization and angioplasty of totally occluded right coronary artery and a large clot was aspirated from right coronary artery and then stented, the right coronary artery stent was a drug-eluting stent, diabetes, hypertension, hyperlipidemia, history of coronary artery disease before, hypophosphatemia. RECOMMENDATIONS: Continue Integrilin till 9 a.m., supplement phosphate. Continue beta-valery, aspirin, Plavix, and low-dose lisinopril. We will get echo to assess LV function. Repeat the lab in the morning. Supplement phosphate. We will follow with you. Ambulate. Patient was on lidocaine, which was discontinued at 8 p.m. last night since then the patient has had no arrhythmia after angioplasty. Most likely this arrhythmia is secondary to ischemic driven. We will supplement phosphate. We will follow with you. CPK and troponin trending down. We will repeat EKG in the morning. Get echo today. We will transfer this patient to telemetry. Ly Velazquez MD
--- NOTE | 2017-04-29 16:03 | CARD ---
APPROVED REPORT EXAM: Two-dimensional and M-mode echocardiogram with Doppler and color Doppler. INDICATION 2D DIMENSIONS IVSd1.0 (0.7-1.1cm)LVDd4.7 (3.9-5.9cm) PWd1.1 (0.7-1.1cm)LVDs3.8 (2.5-4.0cm) FS (%) 19.2 %LVEF (%)39.7 (>50%) M-Mode DIMENSIONS Left Atrium (MM)4.70 (2.5-4.0cm)Aortic Root4.10 (2.2-3.7cm) Aortic Cusp Exc.2.00 (1.5-2.0cm) Aortic Valve AoV Peak Eoingkwd409.0cm/Aleksandr Peak GR.7mmHg Mitral Valve MV E Wubkghds99.0cm/sMV A Vrkrscwv55.2cm/sE/A ratio0.4 TDI Lateral E' Peak V5.46cm/sMedial E' Peak V4.13cm/sE/Lateral E'7.3 E/Medial E'9.7 Tricuspid Valve TR Peak Hdpsjupf305cx/sRAP LQPRSZLN44czGrYP Peak Gr.23mmHg [id number] LEFT VENTRICLE The left ventricle is normal size. There is mild concentric left ventricular hypertrophy. Left ventricle systolic function is mildly to moderately impaired.EF-35-40% Regional wall motion abnormalities noted. There is mild to moderate hypokinesis in the mid-inferolateral wall. There is moderate to severe hypokinesis in the apical anterior wall. Transmitral Doppler flow pattern is Grade III-reversible restrictive diastolic dysfunction. No left ventricle thrombus noted on this study. There is no ventricular septal defect visualized. There is no left ventricular aneurysm. There is no mass noted in the left ventricle. RIGHT VENTRICLE The right ventricle is normal size. There is normal right ventricular wall thickness. The right ventricular systolic function is normal. ATRIA The left atrium is mildly dilated. The right atrium size is normal. The interatrial septum is intact with no evidence for an atrial septal defect. AORTIC VALVE The aortic valve is thickened but opens well. The aortic valve is mildly to moderately sclerotic. There is trace aortic regurgitation. There is no aortic valvular stenosis. There is no aortic valvular vegetation. MITRAL VALVE The mitral valve is thickened but opens well. Mitral annular calcification is moderate. Mitral regurgitation is trace. There is no mitral valve stenosis. There is no evidence of mitral valve prolapse. TRICUSPID VALVE The tricuspid valve leaflets are thickened , but open well. There is mild tricuspid regurgitation.RVSP-33 mmof Hg. There is no tricuspid valve stenosis. There is no tricuspid valve prolapse or vegetation. PULMONIC VALVE The pulmonary valve is normal in structure. There is trace pulmonic valvular regurgitation. There is no pulmonic valvular stenosis. GREAT VESSELS The aortic root is mildly enlarged. The ascending aorta is Mildly dilated. The pulmonary artery is normal. The IVC is normal in size and collapses >50% with inspiration. PERICARDIAL EFFUSION There is no pleural effusion. There is no pericardial effusion. <Conclusion> The left ventricle is normal size. There is mild concentric left ventricular hypertrophy. Left ventricle systolic function is mildly to moderately impaired.EF-35-40% Regional wall motion abnormalities noted. Trace MR/AR/PI There is mild tricuspid regurgitation.RVSP-33 mmof Hg. The aortic root is mildly enlarged. The ascending aorta is Mildly dilated. There is no pericardial effusion. S/p PTCA of Occluded RCA
--- NOTE | 2017-04-29 20:57 | HP ---
CHIEF COMPLAINT: Chest pain. HISTORY OF PRESENT ILLNESS: Patient is a 76-year-old with past medical history of NV 10 years ago with three cardiac stents, brought into the emergency department by EMS for chest pain. Pain radiates down to his left arm as per patient. EMS reports, the patient was cardioverted seven times in the field on the route to emergency room. Patient received aspirin, 300 mg amiodarone, 2 g of magnesium and lidocaine. No fever, no chills, no headache, no dizziness. Patient was transferred to Cath. Cath was done by Dr. Velazquez. Then, up from bed, the patient was transferred to the ICU. PAST MEDICAL HISTORY: Coronary artery disease, history of NV, history of hypercholesterolemia, noncompliant. FAMILY HISTORY: Father and mother, noncontributory. ALLERGIES: PATIENT IS NOT ALLERGIC WITH ANY MEDICATIONS. REVIEW OF SYSTEMS: Patient was seen and examined. Looking comfortable. No nausea, vomiting or diarrhea.. No fever. No chills. No headache. No dizziness. No hematuria. No hematochezia. PHYSICAL EXAMINATION: VITAL SIGNS: Temperature 98.6, pulse 62, blood pressure 134/80. HEENT: Head: Normocephalic, atraumatic. Eyes: PERRLA, extraocular muscles are intact, conjunctivae clear. Nose patent. Mucous membrane moist. NECK: Supple. No carotid bruit. No JVD or thyromegaly. CHEST: Bilaterally symmetrical. HEART: S1 and S2 positive. LUNGS: Clear to auscultation. ABDOMEN: Soft. Bowel sounds are present. No organomegaly. EXTREMITIES: No edema. No cyanosis. NEUROLOGIC: Patient is awake and alert, moving all four extremities. No focal deficit. LABORATORY DATA: White blood cell 13.3, hemoglobin 15.1, hematocrit 47.1, platelets 191. Sodium 141, potassium 3.2, it was replaced, BUN 18, creatinine 1.3, glucose 178, magnesium 3.9. ASSESSMENT AND PLAN: Mr. Gage Shine is a 76-year-old male with leukocytosis, hypokalemia replaced, hyperglycemia, hypomagnesemia replaced, troponin positive, seen with the chest pain, history of coronary artery disease, status post three stents in [facility] by Dr. Velazquez, history of myocardial infarction, possible acute ischemia, ventricular tachycardia, ventricular fibrillation, cardiac stents was put in [facility] 10 years ago, hypertension, history of hypercholesterolemia, noncompliant with medications and especially of first visit, never want to go for age appropriate testing, got Plavix. Dr. Velazquez has lot of time discussion done with the patient's son. Patient went for a labor contractor. After cath, chest discomfort resolved, no shortness of breath, history of former smoker in the past. First set of troponin was indeterminate. EKG showed right bundle branch block with a oob-VY-bspofpowr or T-wave changes. In labor contractor, got stenting of mid right coronary artery with drug-eluting stent for 100% occlusion. Patient was medically stable after that. We are observing him in the unit. Also recommended aspirin and Plavix for at least 1 year, medical therapy, cardiac risk reduction program, urged to be compliant. Continue beta-blockers, URIEL inhibitors and statin, was getting Integrilin sarabjit, Tonya p.r.n., Colace p.r.n. Leukocytosis is mainly due to reactive, electrolytes replaced. Appreciated food service counter clerk and vending machine technician input. We will follow up. Molly Lauren MD
[2017-04-29] MEDS ORDERED: Heparin25000 units/250ml 1/2NS 25,000 UNITS/250 ML BAG IV PRN (23:38)
[2017-04-30] MEDS: diltiaZEM IVPB 100mg in NS 100 ML IV PRN ×2 (00:23→07:56)
[2017-04-30 08:27] LABS: BASO # 0.03 K/mm3 (0.0-2.0); BASO % 0.2 % (0.0-3.0); EOS % 0.3 % (1.5-5.0); GRAN # 8.9 (1.4-6.5); GRAN % 68.1 % (50.0-68.0); HEMOGLOBIN 13.5 g/dL (14.0-18.0); LYMPH # 2.9 (1.2-3.4); LYMPH % 22.1 % (22.0-35.0); MEAN CELL VOLUME 90.4 fl (80.0-105.0); MEAN CORPUSCULAR HEMOGLOBIN 29.5 pg (25.0-35.0); MEAN CORPUSCULAR HGB CONC 32.7 g/dl (31.0-37.0); MEAN PLATELET VOLUME 11.2 fl (7.0-11.0); MONO # 1.2 (0.1-0.6); MONO % 9.3 % (1.0-6.0); RBC 4.57 10^6/uL (3.5-6.1); RED CELL DISTRIBUTION WIDTH 13.9 % (11.5-14.5); WHITE BLOOD COUNT 13.1 10^3/ul (4.5-11.0)
[2017-04-30 08:56] LABS: ALB/GLOB RATIO 1.3 (1.1-1.8); ALBUMIN 3.5 g/dL (3.0-4.8); ALT/SGPT 57 U/L (7-56); AST/SGOT 150 U/L (17-59); BLOOD UREA NITROGEN 34 mg/dL (7-21); CALCIUM 9.2 mg/dL (8.4-10.5); GFR AFRICAN-AMERICAN > 60; GFR NON-AFRICAN AMERICAN 59; MAGNESIUM 2.4 mg/dL (1.7-2.2)
[2017-04-30 09:32] LABS: CK-MB 22.2 ng/mL (0.0-3.6)
--- NOTE | 2017-04-30 10:07 | CARD ---
APPROVED REPORT EKG Measurement Heart [id number] [place] 148P44 [id number] <Conclusion> Normal sinus rhythm Left axis deviation/LAHB Right bundle branch block ASMI, evolving
--- NOTE | 2017-04-30 10:27 | CARD ---
APPROVED REPORT EKG Measurement Heart [id number] <Conclusion> Normal sinus rhythm Left axis deviation/LAHB Right bundle branch block Anteroseptal infarct,recent STTW changes c/w ischemia
[2017-04-30] MEDS ORDERED: Potassium Phosphate 3 mmol/ml Inj IV ONE (18:00)
[2017-04-30] MEDS ORDERED: Potassium Phosphate 15 MMOLE in Sodium Chloride 0.9% 250 ML IVPB ONE (18:15)
[2017-04-30] MEDS: Pantoprazole 40 mg EC Tab PO SCH (18:42)
[2017-04-30] MEDS: Eptifibatide 0.75 mg/ml 75 MG/100 ML BOTTLE IV SCH (19:22)
--- NOTE | 2017-04-30 22:13 | PN ---
DATE: 04/30/2017 LOCATION: The patient in room 372, bed 1. REASON FOR CONSULTATION: Followup 7 episodes of V tach with shock and the patient has agq-DX-afyhssc elevation myocardial infarction with complete occlusion of RCA with clot for which the patient has removal of the clot and stent inserted in the right coronary. The patient last night also had an episode of atrial fibrillation, was given Cardizem drip and converted into sinus rhythm. SUBJECTIVE: The patient is lying flat in bed without chest pain, shortness of breath, palpitation. PHYSICAL EXAMINATION: VITAL SIGNS: Blood pressure 98/54, respirations 18, pulse 59, temperature 97.0. HEENT: Head is normocephalic. Eyes: Pupils normal. Conjunctivae normal. Nose and throat normal. NECK: JVP low. Carotids equal. THORAX: AP diameter normal. LUNGS: Clear. CARDIOVASCULAR: S1 and S2. ABDOMEN: Soft. No tenderness. No organomegaly. Bowel sounds normal. EXTREMITIES: No clubbing. No cyanosis. LABORATORY DATA: WBC 13.1, hemoglobin 13.5, hematocrit 41.3, platelet 193. Sodium 141, potassium 4.1, BUN 34, creatinine 1.2, phosphorus 1.8, magnesium 2.4. AST 150, ALT 57, LDH 2098, CPK 1088. Troponin initially 204, second one , third one is 34.2, total protein and albumin normal. Echo done on 04/29/2017 showed mild concentric LV hypertrophy, LV ejection fraction mild to moderately reduced with EF 35% to 40%, trace MR, AR, 3.16 , mild tricuspid regurgitation, RVSP only 33 mmHg. Aortic root slightly enlarged. Ascending aorta slightly enlarged. DIAGNOSES: Include inferior wall myocardial infarction; day-QD-swhihoj elevation myocardial infarction; right bundle-branch block; history of coronary artery disease; patient is status post stent 8 or 10 years ago at [facility], admitted 2 days ago with chest pain, en route to [facility] he was shocked 7 times for ventricular tachycardia, ventricular fibrillation; status post cardiac catheterization and angioplasty of totally occluded right coronary artery with large clot, which was aspirated and drug-eluting stent was inserted; diabetes; hypertension; hyperlipidemia; history of coronary artery disease; hypophosphatemia; episode of atrial fibrillation converted to sinus rhythm with Cardizem drip. Cardizem drip and heparin drip has been put on hold. The patient started on Cardizem 30 mg p.o. t.i.d., aspirin 81 mg daily, atorvastatin 40 mg daily, metoprolol 25 mg b.i.d., Plavix 75 daily, lisinopril 2.5 mg daily. We will also add Protonix 40 mg p.o. daily and we will follow with you. Ly Sherman MD
--- NOTE | 2017-05-01 01:43 | PN ---
DATE: SUBJECTIVE: Patient is seen and examined on the bedside, looking comfortable. No nausea, vomiting, or diarrhea. No hematuria or hematochezia. No swelling of the legs. No chest pain. No palpitations. No headache. No dizziness. Tolerating food very well. Has bowel movements. PHYSICAL EXAMINATION: VITAL SIGNS: Temperature 98.3, pulse 67, blood pressure 101/68, respiratory rate 18. HEENT: Head: Normocephalic, atraumatic. Eyes: PERRLA. Extraocular movements are intact. Conjunctivae clear. Nose: Patent. Mucous membranes are moist. NECK: Supple. No carotid bruits. No JVD or thyromegaly. CHEST: Bilaterally symmetrical. HEART: S1, S2 positive. LUNGS: Clear to auscultation. ABDOMEN: Soft. Bowel sounds present. No organomegaly. EXTREMITIES: No edema. No cyanosis. NEUROLOGIC: Patient is awake, alert. Moving all four extremities. No focal deficits. MEDICATIONS: Cardizem, Colace, Ecotrin, Lipitor, Lopressor, Plavix, potassium, Protonix, Zestril, Zofran. LABORATORY DATA: White blood cells 13.0, hemoglobin 13.5, hematocrit 41.3, platelets 193. Sodium 141, potassium 4.1, BUN 34, creatinine 1.2, phosphorus 1.8, troponin 34.2. ASSESSMENT AND PLAN: Mr. Candelario Shine is a 76-year-old male with leukocytosis, insomnia, getting Ambien, anemia, hyperchloremia, hypophosphatemia, hypermagnesemia; abnormal cardiac enzymes, but trending down; seen by Dr. Velazquez, manager software; had acute inferior wall myocardial infarction, non-ST segment myocardial infarction and right middle branch block, history of coronary artery disease in the past, has cardiac stent 3, 8 to 10 years ago in [facility] by Dr. Velazquez. Patient has had chest pain while brought to [facility], having shocked seven times, has ventricular tachycardia, ventricular fibrillation, status post cardiac catheterization now, angioplasty of the total occluded right coronary artery disease and large clot was aspirated from the right coronary artery and then stent to the right coronary artery, stent was drug-eluting; diabetes mellitus; hypertension; hypercholesterolemia. Discussion done with the patient, length of time, and all questions answered. Continue Integrilin until 9 a.m., supplement. Continue beta-blockers. Repeat labs, out of bed, physical therapy, ambulate, gastrointestinal and deep venous thrombosis prophylaxis. We will follow up. Molly Lauren MD MTDMonica
[2017-05-01] MEDS: Pantoprazole 40 mg EC Tab PO SCH (09:56)
[2017-05-01] MEDS ORDERED: Potassium Phosphate 15 MMOLE in Sodium Chloride 0.9% 250 ML IVPB ONE (13:30)
--- NOTE | 2017-05-01 14:28 | PN ---
DATE: 05/01/2017 LOCATION: The patient in room 372, bed 1. REASON FOR CONSULTATION: Follow up 7 episodes of V-tach with shock, the patient has koj-JC-vlvxcdlvk myocardial infarction with complete occlusion of RCA for which he had emergency cath. Clot was suctioned and the patient put drug-eluting stent in the RCA. The patient presented with cuh-ZE-ilakzfuzy myocardial infarction. The patient also had an episode of atrial fibrillation, was given a Cardizem drip and converted to sinus rhythm. The patient today also maintaining sinus rhythm. SUBJECTIVE: The patient denies chest pain, shortness of breath, palpitation. PHYSICAL EXAMINATION: VITAL SIGNS: Blood pressure 134/73, respirations 18, pulse 60, temperature 96.2. HEENT: Head is normocephalic. Eyes: Pupils normal. Conjunctivae normal. Nose and throat normal. NECK: JVP low. Carotids equal. THORAX: AP diameter normal. LUNGS: Clear. CARDIOVASCULAR: S1 and S2. ABDOMEN: Soft. No tenderness. No organomegaly. Bowel sound normal. EXTREMITIES: No clubbing. No cyanosis. LABORATORY DATA: WBC 13.1, hemoglobin 13.5, hematocrit 41.3, platelets 193. Sodium 141, potassium 4.1, BUN 34, creatinine 1.2, calcium 9.2, phosphorus 1.8, magnesium 2.4. LDL 2098, CPK 1088. Troponin which was done initially 204, then subsequently 102 and yesterday 34.2. Total protein, albumin normal. DIAGNOSES: Inferior wall myocardial infarction, rnp-HC-lvviwei elevation myocardial infarction, right bundle-branch block, history of coronary artery disease, status post stent 8 or 10 years ago at [facility], admitted 3 days ago with chest pain and now to [facility] because the patient has the seventh time of shock with ventricular tachycardia, ventricular fibrillation. Cardiac catheterization, angioplasty and stent insertion in right coronary artery after sucking out of the clot which was totally occluding the right coronary artery and causing acute anterior wall myocardial infarction. Diabetes, hypertension, hyperlipidemia, hypophosphatemia, episode of atrial fibrillation, converted to sinus rhythm with Cardizem. PLAN: Cardizem drip had been stopped and now the patient is on p.o. Cardizem maintaining sinus rhythm. Phosphorus is still low. We will give another IV phosphorus, we gave yesterday one bolus. The patient on diltiazem 30 mg t.i.d., aspirin 81 daily, Plavix 75 daily, atorvastatin 40 daily, metoprolol 25 b.i.d., Protonix 40 daily, lisinopril 2.5 daily. We will repeat phosphorus level in the morning. We will follow. Ly Sherman MD
[2017-05-01 17:01] LABS: BLOOD UREA NITROGEN 22 mg/dL (7-21); CALCIUM 9.1 mg/dL (8.4-10.5); GFR AFRICAN-AMERICAN > 60; GFR NON-AFRICAN AMERICAN > 60; MAGNESIUM 1.9 mg/dL (1.7-2.2)
--- NOTE | 2017-05-02 00:18 | PN ---
DATE: The patient is a 76-year-old male. SUBJECTIVE: The patient is seen and examined on the bedside, looking comfortable. No nausea, vomiting, diarrhea. No hematuria or hematochezia. No swelling of the leg. No chest pain. No palpitation. No headache. No dizziness. The patient has episodes of atrial fibrillation yesterday, was given Cardizem drip, converted to sinus rhythm, now we are observing the patient. Right now, he is keeping sinus rhythm. PHYSICAL EXAMINATION: VITAL SIGNS: Blood pressure 134/73, respiratory rate 18, pulse 60, temperature 96.2. HEENT: Head normocephalic, atraumatic. Eyes PERRLA. Extraocular muscles are intact. Conjunctivae are clear. Nose patent. NECK: Supple. No carotid bruit. No JVD or thyromegaly. CHEST: Bilaterally symmetrical. HEART: S1 and S2 positive. LUNGS: Clear to auscultation. ABDOMEN: Soft. Bowel sounds positive. No organomegaly. EXTREMITIES: No edema. No cyanosis. NEUROLOGICAL: The patient is awake and alert. Moving all 4 extremities. No focal deficits. LABORATORY DATA: White blood cells 13.1, hemoglobin 13.4, hematocrit 41.3, platelets 193. Sodium 138, potassium 4.3, BUN 22, creatinine 1.1. MEDICATIONS: Ambien, Cardizem, Colace, Ecotrin, Lipitor, Lopressor, Plavix, potassium, Protonix, Zestril, Zofran, Lopressor. ASSESSMENT AND PLAN: Ms. Gage Shine, 76-year-old male with leukocytosis, anemia. Came with episode of ventricular tachycardia with shock. The patient has pqj-PI-rsgtisosx myocardial infarction with a complete occlusion of right coronary artery for which he has emergency cath. Clot was suctioned and put drug-eluting stent in the right coronary artery. The patient also has episodes of atrial fibrillation, which was converted with Cardizem drip. Now, the patient is sustaining right bundle-branch block, history of coronary artery disease. Ten years ago, in [facility], he got cardiac stent x2. History of hypertension, hypercholesterolemia, hypophosphatemia. Cardizem drip has been stopped. Now, the patient is on p.o. Cardizem. Phosphorus is low, got another IV phosphorus. We will continue present treatment, observing the patient. Physical therapy. We will follow up. Molly Lauren MD
[2017-05-02 07:25] LABS: BLOOD UREA NITROGEN 19 mg/dL (7-21); CALCIUM 8.9 mg/dL (8.4-10.5); GFR AFRICAN-AMERICAN > 60; GFR NON-AFRICAN AMERICAN > 60; MAGNESIUM 1.9 mg/dL (1.7-2.2)
--- NOTE | 2017-05-02 09:03 | PN ---
DATE: 04/29/2017 SUBJECTIVE: The patient is a 76-year-old male. The patient was seen and examined at the bedside on 04/29/2017. No nausea, vomiting, or diarrhea. No hematuria or hematochezia. No swelling of the legs. I saw him in the unit, while sitting on the chair. PHYSICAL EXAMINATION: VITAL SIGNS: Temperature 98.6 , pulse is 72, blood pressure 120/80 respiratory rate 18. HEENT: Head: Normocephalic, atraumatic. Eyes: PERRLA. Extraocular muscles intact. Conjunctivae clear. Nose patent. Mucous membranes are moist. NECK: Supple. No carotid bruits. No JVD or thyromegaly. CHEST: Bilaterally symmetrical. HEART: S1 and S2 positive. LUNGS: Clear to auscultation. ABDOMEN: Soft. Bowel sounds present. No organomegaly. EXTREMITIES: No edema. No cyanosis. NEUROLOGIC: The patient is awake and alert. Moving all 4 extremities. No focal deficits. MEDICATIONS: Ambien, Cardizem, Ecotrin, Lipitor, Lopressor, Plavix, LABORATORY DATA: White blood cell 13.9, hemoglobin 14.8, hematocrit 42.9, platelets noted . Sodium 140, potassium 4.7, BUN , creatinine and glucose noted ASSESSMENT AND PLAN: Mr. Fátima Almonte is a 76-year-old male with leukocytosis, hypophosphatemia, hypermagnesemia, abnormal liver function test abn. myocardial infarction, hypertension, hypercholesterolemia. We will continue present treatment, supplement phosphorus, done echocardiography. We will follow. Molly Lauren MD MTDD
[2017-05-02] MEDS: Pantoprazole 40 mg EC Tab PO SCH (09:45)
[2017-05-02 12:35] VITALS: BP 140/69; PULSE 66; RESP 19; TEMP 98.2; O2SAT 96
--- NOTE | 2017-05-02 15:57 | PN ---
DATE: 05/02/2017 LOCATION: Room 372, bed 1. REASON FOR CONSULTATION: Followup 7 episodes of V-tach, total occlusion of RCA and causing acute GA, status post angioplasty and stent insertion in RCA. Then, the patient had a run of atrial fibrillation converted to sinus rhythm with Cardizem. SUBJECTIVE: The patient is sitting in chair comfortably without chest pain, shortness of breath, palpitation. PHYSICAL EXAMINATION VITAL SIGNS: Blood pressure 140/69, respirations 19, pulse 66, temperature 98.2. HEENT: Head is normocephalic. Eyes: Pupils normal. Conjunctivae normal. Nose and throat normal. NECK: JVP low. Carotid equal. THORAX: AP diameter normal. LUNGS: Clear. CARDIOVASCULAR: S1, S2. ABDOMEN: Soft. No tenderness. No organomegaly. EXTREMITIES: No clubbing. No cyanosis. LABORATORY DATA: WBC is 13.1, hemoglobin 13.5, hematocrit 41.3, platelet 193. Sodium 139, potassium 4.1, BUN 19, creatinine 1.1. Calcium 8.9, phosphorus 2.8, magnesium 1.9. DIAGNOSES: Fever, myocardial infarction due to acute occlusion of the right coronary artery, status post stent insertion, history of ventricular tachycardia with acute myocardial infarction, short run of atrial fibrillation converted into sinus rhythm with Cardizem, diabetes, hypertension, hyperlipidemia. Patient is on aspirin 81 mg daily, Lipitor 40 daily, metoprolol 25 b.i.d., Plavix 75 daily, Protonix 40 daily, lisinopril 2.5 daily, atorvastatin 40 daily. We will follow. Ly Sherman MD
--- NOTE | 2017-05-02 17:50 | PN ---
DATE: 05/02/2017 REASON FOR CONSULTATION AND FOLLOWUP: Status post non-ST myocardial infarction, status post PTCA, status post primary angioplasty of total occluded RCA. SUBJECTIVE: Patient denies any chest pain, shortness of breath, or any palpitations. OBJECTIVE: GENERAL: Not in apparent distress. VITAL SIGNS: Temperature afebrile, heart rate 80, blood pressure 140/69. HEENT: PERRLA. Extraocular muscles intact. NECK: Supple. No carotid bruits or thyromegaly. CHEST: Clear to auscultation. HEART: S1 and S2, regular. ABDOMEN: Soft. EXTREMITIES: Clubbing and cyanosis negative. LABORATORY DATA: Blood workup as follows. WBC is 13.1, hemoglobin 13.5, hematocrit 41.3, platelet count 193. Chemistry shows sodium 139, potassium 4.8, chloride 106, carbon dioxide 24, anion gap of 13. BUN 19, creatinine 1.1. IMPRESSION: Acute nonlST-segment myocardial infarction, coronary artery disease, status post percutaneous transluminal coronary angioplasty. No further arrhythmia noted after percutaneous transluminal coronary angioplasty, status post successful percutaneous transluminal coronary angioplasty; history of coronary artery disease, status post 3 stents in the past. Patient had echocardiography done on 04/29/2017, that showed ejection fraction 35% to 40%, trace mitral regurgitation, trace aortic regurgitation, trace pulmonic insufficiency. RECOMMENDATION: Continue aspirin, continue Plavix. Cardizem 30 mg three times a day. Continue lisinopril 2.5 p.o. daily. Possible discharge today. We will follow with you upon discharge. Thank you Dr. Lauren for providing me the opportunity in taking care of the patient, Candelario Shine. Ly Velazquez MD
[2017-05-03] MEDS ORDERED: diltiaZEM 120 mg/24 Hours CD Cap PO SCH (10:00)
== END 2017-05-02 14:25 | disposition home or self-care (01) | DRG 246 ==
LOC: ED 11:23 → CATH 13:36 → ERH 14:19 → ICU 15:25 → 3RSO 04-29 17:32
PROVIDERS: ADMIT Internal Medicine; ATTEND Internal Medicine
PROC: 027034Z Dilation of Coronary Artery, One Artery with Drug-eluting Intraluminal Device, Percutaneous Approach (ICD-10-PCS; principal; 2017-04-28)
PROC: 4A023N7 Measurement of Cardiac Sampling and Pressure, Left Heart, Percutaneous Approach (ICD-10-PCS; 2017-04-28)
PROC: B211YZZ Fluoroscopy of Multiple Coronary Arteries using Other Contrast (ICD-10-PCS; 2017-04-28)
PROC: B215YZZ Fluoroscopy of Left Heart using Other Contrast (ICD-10-PCS; 2017-04-28)
DX: I21.4 Non-ST elevation (NSTEMI) myocardial infarction (principal); I49.01 Ventricular fibrillation; I47.2 Ventricular tachycardia; I25.82 Chronic total occlusion of coronary artery; I25.10 Atherosclerotic heart disease of native coronary artery without angina pectoris; E83.41 Hypermagnesemia; E83.39 Other disorders of phosphorus metabolism; D64.9 Anemia, unspecified; E11.9 Type 2 diabetes mellitus without complications; I48.91 Unspecified atrial fibrillation; I45.10 Unspecified right bundle-branch block; E78.00 Pure hypercholesterolemia, unspecified; E87.6 Hypokalemia; I10 Essential (primary) hypertension; G47.00 Insomnia, unspecified; I25.5 Ischemic cardiomyopathy; D72.829 Elevated white blood cell count, unspecified; I25.2 Old myocardial infarction; Z91.19 Patient's noncompliance with other medical treatment and regimen; Z91.14 Patient's other noncompliance with medication regimen; Z95.5 Presence of coronary angioplasty implant and graft; Z87.891 Personal history of nicotine dependence